=== PATIENT | male | born 1980 ===

== ENCOUNTER 2016-11-23 12:33 | Emergency (ER) | payer BC ==
[2016-11-23 12:46] VITALS: BP 167/95
--- NOTE | 2016-11-23 13:10 | EDM.PDOC ---
ED HPI GENERAL MEDICAL PROBLEM - General Chief Complaint: ENT Problem Stated Complaint: FOOD STUCK IN THROAT Time Seen by Provider: 11/23/16 12:37 Source of Information: Reports: Patient History Limitations: Reports: No Limitations - History of Present Illness INITIAL COMMENTS - FREE TEXT/NARRATIVE: The patient is a 36-year-old male with a chief complaint of suspected impacted esophageal food bolus. The patient states that he was eating wedges and talking on the phone while driving when a piece of potato became lodged in his throat. He was unable to swallow it. It was very uncomfortable. He then came to the emergency department. While he was in the waiting room, he was able to pass the food bolus. Prior to that he did have one episode of vomiting. He now feels normal. No throat pain. No chest pain or shortness of breath or abdominal pain. He's had this happen twice before. Has never had endoscopy. - Related Data Allergies Allergy/AdvReac Type Severity Reaction Status Date / Time No Known Allergies Allergy Verified 11/23/16 12:41 Home Meds: Home Meds . [No Known Home Meds] 11/23/16 [History] Past Medical History Other HEENT History: States has had food get stuck in throat before. 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 Cardiovascular History: Reports: Hypertension Musculoskeletal History: Reports: Back Pain, Chronic Other Musculoskeletal History: "pinched nerve C6-C7" - Past Surgical History HEENT Surgical History: Reports: None Social & Family History - Family History Cardiac: Reports: [place], [place] Endocrine/Metabolic: Reports: Diabetes, Type I - Tobacco Use Smoking Status *Q: Never Smoker - Caffeine Use Caffeine Use: Reports: Coffee, Soda - Recreational Drug Use Recreational Drug Use: No ED ROS ENT - Review of Systems Review Of Systems: See Below Constitutional: Reports: No Symptoms HEENT: Denies: Throat Pain Respiratory: Denies: Shortness of Breath Cardiovascular: Denies: Chest Pain GI/Abdominal: Denies: Abdominal Pain ED EXAM, ENT - Physical Exam Exam: See Below Exam Limited By: No Limitations General Appearance: Alert, WD/WN, No Apparent Distress Eye Exam: Bilateral Eye: Normal Inspection Ears: Normal External Exam Nose: Normal Inspection Mouth/Throat: Normal Inspection, Normal Gums, Normal Lips, Normal Oropharynx, Normal Teeth Head: Atraumatic, Normocephalic Neck: Normal Inspection, Supple, Non-Tender, Full Range of Motion Respiratory/Chest: No Respiratory Distress Neurological: Alert, Oriented, Normal Cognition Psychiatric: Normal Affect, Normal Mood Skin: Normal Color Course - Vital Signs Last Recorded V/S: Last Vital Signs Temp 36.4 C 11/23/16 12:44 Pulse 97 11/23/16 12:44 Resp 20 11/23/16 12:44 BP 167/95 H 11/23/16 12:44 Pulse Ox 97 11/23/16 12:44 - Re-Assessments/Exams Free Text/Narrative Re-Assessment/Exam: 11/23/16 13:32 Swallowing normally. Will refer for EGD as this has happened multiple times to eval for stricture. Discussed this with patient. He lives in [place], will f/ u there. Departure - Departure Time of Disposition: 13:08 Disposition: Home, Self-Care 01 Clinical Impression: Impacted esophageal foreign body Qualifiers: Encounter type: initial encounter Qualified Code(s): T18.108A - Unspecified foreign body in esophagus causing other injury, initial encounter - Discharge Information Instructions: Swallowed Foreign Body, Adult, [id number] Referrals: PCP,Unknown [Primary Care Provider] - Forms: ED Department Discharge Additional Instructions: 1. Follow up with a double back operator or possibly a surgeon (confirm they do this procedure before scheduling) for an upper endoscopy (EGD) to check out your esophagus. 2. Meanwhile, be sure to cut food into small pieces and chew thoroughly. 3. Return to the Emergency Department if you have further problems swallowing
== END 2016-11-23 13:45 | disposition home or self-care (01) ==
LOC: JD.ED 12:33
DX: T18.128A Food in esophagus causing other injury, initial encounter (principal); I10 Essential (primary) hypertension
CPT/HCPCS: 99282; 99283